=== PATIENT | male | born 1975 | race Two or more races ===

== ENCOUNTER → 2024-05-07 14:47 | Outpatient (REF) | payer OTHER, SELFPAY | LOC: HWRCS 14:47 | PROVIDERS: ATTENDING PHYSICIAN Internal Medicine Cardiovascular Disease; FAMILY PHYSICIAN Internal Medicine | DX: R09.89 Other specified symptoms and signs involving the circulatory and respiratory systems (principal); R00.0 Tachycardia, unspecified | CPT/HCPCS: 93306 ==